=== PATIENT | female | born 1955 | race Hispanic/Latino ===

== ENCOUNTER 2018-02-19 18:17 | Inpatient (IN) | payer OTHER ==
[~2018-02-19] VITALS: Ht 160 cm; Wt 89.9 kg
[~2018-02-19 18:17] MED LIST: AMIODARONE HCL 50 MG/ML 3 ML VIAL IV ONE; ASPI81TA40 PO; ATOR10TA69 PO; CLOP75TA14 PO; EPINEPHRINE 0.1 MG/ML 10 ML SYG IVP ONE; FURO20TA6 PO; LIDOCAINE 2G/250ML 250 ML IV ONE; METO50TA18 PO; OLME20TA22 PO; TYL3 PO
[2018-02-19] MEDS ORDERED: IOPAMIDOL-370 100 ML VIAL IV ONE (18:42)
[2018-02-19 18:46] LABS: BASOPHILS % (AUTO) 0.6 % (0.0-5.0); EOSINOPHILS % (AUTO) 1.5 % (0.0-8.0); HEMATOCRIT 38.9 % (36-48); LYMPHOCYTES % (AUTO) 21.5 % (21.0-51.0); MEAN CORPUSCULAR HEMOGLOBIN 31.4 pg (27.0-33.0); MEAN CORPUSCULAR HGB CONC 33.9 g/dL (32.0-36.0); MEAN CORPUSCULAR VOLUME 92.8 fL (79-99); MONOCYTES % (AUTO) 5.5 % (3.0-13.0); NEUTROPHILS % (AUTO) 70.9 % (40.0-77.0); PLATELET COUNT (AUTO) 222 K/uL (130-400); RED BLOOD CELL COUNT(AUTO) 4.19 MIL/uL (4.00-5.50); RED CELL DISTRIBUTION WIDTH 13.3 % (11.0-15.5); WHITE BLOOD COUNT (AUTO) 11.7 K/uL (4.8-10.8)
[2018-02-19 18:58] LABS: INR 0.98 (0.85-1.15); PROTHROMBIN TIME 10.3 SEC (9.6-11.6)
[2018-02-19 19:00] LABS: CREATININE 1.2 mg/dL (0.5-1.5); POTASSIUM 3.2 mmol/L (3.5-5.1)
[2018-02-19 19:03] LABS: ALBUMIN 3.7 g/dL (3.5-5.0); BILIRUBIN,TOTAL 0.4 mg/dL (0.2-1.0); TOTAL PROTEIN, SERUM 6.9 g/dL (6.0-8.3)
[2018-02-19 20:41] LABS: APPEARANCE,URINE Clear (CLEAR); BILIRUBIN,URINE Negative (NEGATIVE); COLOR,URINE Yellow (YELLOW); GLUCOSE, URINE (UA) Negative (NEGATIVE); KETONES,URINE Negative (NEGATIVE); LEUKOCYTE ESTERASE ,URINE Trace (NEGATIVE); NITRATE,URINE Negative (NEGATIVE); OCCULT BLOOD,URINE Negative (NEGATIVE); PROTEIN,URINE Negative (NEGATIVE); UROBILINOGEN,URINE 0.2 mg/dL (0.2-1.0)
[2018-02-19] MEDS ORDERED: MORPHINE SULFATE 2 MG/ML 1ML SYG ONE (20:46)
[2018-02-19 21:19] LABS: BACTERIA,URINE Rare /HPF (None Seen); RBC,URINE 0-1 /HPF (0-1); SQUAMOUS EPITHELIAL CELL,UR Rare /HPF (0-2)
[2018-02-20] VITALS (24 sets, daily range): BP systolic 79–142; BP diastolic 33–120
[2018-02-20] MEDS ORDERED: POTASSIUM CHLORIDE 10% ELIXIR 20 MEQ/15 ML UDCUP PO PRN
[2018-02-20] MEDS ORDERED: GLUCAGON 1MG KIT 1 MG ML IM PRN
[2018-02-20] MEDS ORDERED: GUAIFENESIN-DM 200/20 MG 10 ML PO PRN
[2018-02-20] MEDS ORDERED: LIDOCAINE HCL-MPF 1% 2ML VIAL IVP PRN
[2018-02-20] MEDS ORDERED: ACETAMINOPHEN-CODEINE 300/30MG TAB PO PRN
[2018-02-20] MEDS ORDERED: LACTULOSE 20 GM/30 ML UDCUP PO PRN
[2018-02-20] MEDS ORDERED: MORPHINE SULFATE 2 MG/ML 1ML SYG IV PRN
[2018-02-20] MEDS ORDERED: DEXTROSE 50%-WATER 50 ML DISP.SYRIN IV PRN
[2018-02-20] MEDS ORDERED: NITROGLYCERIN 0.4 MG SL TAB SL PRN
[2018-02-20] MEDS ORDERED: HYDRALAZINE HCL 20 MG/ML VIAL IV PRN
[2018-02-20] MEDS ORDERED: ONDANSETRON HCL 4 MG/2 ML VIAL IV PRN
[2018-02-20] MEDS ORDERED: ACETAMINOPHEN 325 MG TAB PO PRN ×2
[2018-02-20] MEDS ORDERED: LEVOFLOXACIN 500 MG/D5W 100 ML 100 ML ONE (01:13)
[2018-02-20] MEDS ORDERED: METOPROLOL TARTRATE 25 MG TAB ONE (02:11)
[2018-02-20] MEDS ORDERED: MEPERIDINE-PF 25 MG/ML SYG ONE (04:22)
[2018-02-20 05:07] LABS: HEMATOCRIT 32.5 % (36-48); MEAN CORPUSCULAR HEMOGLOBIN 32.5 pg (27.0-33.0); MEAN CORPUSCULAR HGB CONC 35.2 g/dL (32.0-36.0); MEAN CORPUSCULAR VOLUME 92.2 fL (79-99); PLATELET COUNT (AUTO) 171 K/uL (130-400); RED BLOOD CELL COUNT(AUTO) 3.52 MIL/uL (4.00-5.50); RED CELL DISTRIBUTION WIDTH 14.2 % (11.0-15.5); WHITE BLOOD COUNT (AUTO) 8.9 K/uL (4.8-10.8)
[2018-02-20 05:22] LABS: HEMOGLOBIN A1C 5.8 % (4.0-6.0)
[2018-02-20 05:29] LABS: THYROID STIMULATING HORMONE 1.8 uIU/mL (0.36-3.74)
[2018-02-20] MEDS: INSULIN HUMULIN R 100 UNIT/ML 3ML SQ SCH ×4 (07:30→22:26)
[2018-02-20] MEDS: METOPROLOL TARTRATE 25 MG TAB PO SCH ×2 (09:00→21:00)
[2018-02-20] MEDS ORDERED: FAMOTIDINE 20MG TAB 20 MG TAB PO SCH (09:00)
[2018-02-20] MEDS ORDERED: METO100T14 PO (09:37)
[2018-02-20] MEDS ORDERED: FAMOTIDINE 20MG TAB 20 MG TAB ONE (10:19)
[2018-02-20] MEDS ORDERED: SUCCINYLCHOLINE CHLORIDE 20 MG/ML 10 ML VIAL IVP ONE (12:00)
[2018-02-20] MEDS ORDERED: ETOMIDATE 2 MG/ML 10 ML VIAL IVP ONE (12:00)
[2018-02-20] MEDS ORDERED: ROCURONIUM BROMIDE 10MG/1ML 5ML VL IV ONE (12:00)
[2018-02-20] MEDS ORDERED: AMIODARONE HCL 50 MG/ML 3 ML VIAL ONE (14:40)
[2018-02-20] MEDS ORDERED: NOREPINEPHRINE BITARTRATE 1 MG/1 ML ML IV ONE (14:48)
[2018-02-20 14:58] LABS: ABG BASE EXCESS -18.3 mmol/L (-2.0-3.0); ABG HCO3 10.2 mmol/L (21.0-28.0); ABG OXYGEN SATURATION 99.2 % (95.0-99.0); ABG PCO2 34 mmHg (32-45)
[2018-02-20 15:38] LABS: ABG HCO3 10.5 mmol/L (21.0-28.0); ABG OXYGEN SATURATION 98.4 % (95.0-99.0); ABG PCO2 23 mmHg (32-45)
[2018-02-20 15:40] LABS: BASOPHILS % (AUTO) 0.3 % (0.0-5.0); EOSINOPHILS % (AUTO) 0.4 % (0.0-8.0); HEMATOCRIT 35.7 % (36-48); LYMPHOCYTES % (AUTO) 45.1 % (21.0-51.0); MEAN CORPUSCULAR HGB CONC 34.6 g/dL (32.0-36.0); MEAN CORPUSCULAR VOLUME 95.2 fL (79-99); MONOCYTES % (AUTO) 8.4 % (3.0-13.0); NEUTROPHILS % (AUTO) 45.8 % (40.0-77.0); NUCLEATED RED BLOOD CELLS 0.3 % (0.0-0.19); PLATELET COUNT (AUTO) 170 K/uL (130-400); RED BLOOD CELL COUNT(AUTO) 3.75 MIL/uL (4.00-5.50); RED CELL DISTRIBUTION WIDTH 13.9 % (11.0-15.5); WHITE BLOOD COUNT (AUTO) 11.7 K/uL (4.8-10.8)
[2018-02-20 15:43] LABS: CREATININE 1.3 mg/dL (0.5-1.5)
[2018-02-20 15:47] LABS: POTASSIUM 2.9 mmol/L (3.5-5.1)
[2018-02-20] MEDS ORDERED: IOPAMIDOL-370 75 ML VIAL IV ONE (16:00)
[2018-02-20] MEDS ORDERED: POTASSIUM CHLORIDE 20MEQ/100ML 100 ML IV ONE (16:03)
[2018-02-20 17:34] LABS: ABG BASE EXCESS -9.9 mmol/L (-2.0-3.0); ABG HCO3 14.2 mmol/L (21.0-28.0); ABG OXYGEN SATURATION 99.2 % (95.0-99.0); ABG PCO2 27 mmHg (32-45)
[2018-02-20] MEDS ORDERED: SODIUM CHLORIDE 0.9% 1000ML 1,000 ML IV ONE (17:41)
[2018-02-20] MEDS ORDERED: SODIUM CHLORIDE 0.9% 500ML 500 ML IV SCH (17:45)
[2018-02-20] MEDS ORDERED: LORAZEPAM 2 MG/ML 1 ML VIAL ONE (17:58)
[2018-02-20] MEDS ORDERED: LORAZEPAM 2 MG/ML 1 ML VIAL IVP PRN (18:30)
[2018-02-20] MEDS ORDERED: PROPOFOL 1000 MG/100 ML 100 ML IV ONE (19:49)
[2018-02-20] MEDS: NOREPINEPHRINE 4MG/NS 250ML 250 ML IV SCH ×2 (20:11→23:44)
[2018-02-20] MEDS: POTASSIUM CHLORIDE 20MEQ/100ML 100 ML IV PRN (21:16)
[2018-02-20] MEDS: LEVETIRACETAM 1,000 MG in SODIUM CHLORIDE 0.9% 100 ML IV SCH (22:16)
[2018-02-20] MEDS: HEPARIN SODIUM 5000UNIT/ML 1ML VIAL SQ SCH (22:23)
[2018-02-20] MEDS: LEVOFLOXACIN 500 MG/D5W 100 ML 100 ML IV SCH ×2 (23:52)
[2018-02-21] VITALS (17 sets, daily range): BP systolic 92–150; BP diastolic 39–83
[2018-02-21 00:36] LABS: CREATINE KINASE MB 11.3 ng/mL (0.5-3.6); CREATININE 1.1 mg/dL (0.5-1.5); POTASSIUM 3.6 mmol/L (3.5-5.1)
[2018-02-21 00:43] LABS: TROPONIN I 4.28 ng/mL (0.00-0.06)
[2018-02-21] MEDS: NOREPINEPHRINE 4MG/NS 250ML 250 ML IV SCH ×2 (04:39→08:17)
[2018-02-21] MEDS: INSULIN HUMULIN R 100 UNIT/ML 3ML SQ SCH ×4 (05:35→21:00)
[2018-02-21 05:50] LABS: HEMATOCRIT 29.8 % (36-48); MEAN CORPUSCULAR HEMOGLOBIN 31.8 pg (27.0-33.0); MEAN CORPUSCULAR HGB CONC 33.5 g/dL (32.0-36.0); PLATELET COUNT (AUTO) 119 K/uL (130-400); RED BLOOD CELL COUNT(AUTO) 3.13 MIL/uL (4.00-5.50); RED CELL DISTRIBUTION WIDTH 13.8 % (11.0-15.5); WHITE BLOOD COUNT (AUTO) 15.4 K/uL (4.8-10.8)
[2018-02-21] MEDS: PROPOFOL 1000 MG/100 ML IV PRN ×3 (06:06→23:13)
[2018-02-21 06:15] LABS: CREATINE KINASE MB 19.3 ng/mL (0.5-3.6); CREATININE 0.9 mg/dL (0.5-1.5); POTASSIUM 3.8 mmol/L (3.5-5.1)
[2018-02-21 06:17] LABS: TROPONIN I 3.81 ng/mL (0.00-0.06)
[2018-02-21] MEDS ORDERED: SODIUM CHLORIDE 0.9% 1000ML 1,000 ML IV PRN (08:45)
[2018-02-21] MEDS: LEVETIRACETAM 1,000 MG in SODIUM CHLORIDE 0.9% 100 ML IV SCH (09:00)
[2018-02-21] MEDS: METOPROLOL TARTRATE 25 MG TAB PO SCH ×2 (09:00→21:00)
[2018-02-21] MEDS ORDERED: SODIUM CHLORIDE 0.9% 500ML 500 ML IV ONE (09:06)
[2018-02-21] MEDS: FAMOTIDINE/PF 20 MG/2 ML VIAL IV SCH (09:37)
[2018-02-21] MEDS ORDERED: PHARMACY COMMUNICATION MISC SCH ×2 (10:15→22:00)
[2018-02-21] MEDS: DEXTROSE 5 %-0.45 % NACL 1,000 ML IV SCH (10:27)
[2018-02-21] MEDS: SODIUM CHLORIDE 0.9% IV SCH ×2 (10:27→17:47)
[2018-02-21] MEDS: FOSPHENYTOIN SODIUM IV SCH ×2 (10:27→17:47)
[2018-02-21] MEDS: HEPARIN SODIUM 5000UNIT/ML 1ML VIAL SQ SCH ×2 (10:28→22:32)
[2018-02-21] MEDS: MAGNESIUM 2GM PREMIX 50ML 50 ML IV PRN (10:37)
[2018-02-21] MEDS ORDERED: COMPOUND IV MISC 1 EACH IVSOLN MISC PRN (12:15)
[2018-02-21] MEDS ORDERED: COMPOUND IV REFRIGERATED 1 EACH IVSOLN MISC PRN (12:15)
[2018-02-21] MEDS ORDERED: FENTANYL 2500MCG+NS 250ML 250 ML IV ONE (20:49)
[2018-02-21] MEDS ORDERED: FUROSEMIDE 10 MG/ML 2ML VIAL ONE (20:49)
[2018-02-21] MEDS ORDERED: FUROSEMIDE 10 MG/ML 2ML VIAL IV ONE (21:00)
[2018-02-21] MEDS ORDERED: FENTANYL 2500MCG+NS 250ML 250 ML IV PRN (21:00)
[2018-02-21] MEDS ORDERED: IOPAMIDOL-370 100 ML VIAL IV ONE (21:30)
[2018-02-21] MEDS: VALPROATE SOD 250 MG/5 ML (PO) PO SCH (22:28)
[2018-02-21] MEDS: LEVETIRACETAM 1,500 MG in SODIUM CHLORIDE 0.9% 100 ML IV SCH (22:29)
[2018-02-21] MEDS: LEVOFLOXACIN 500 MG/D5W 100 ML 100 ML IV SCH (23:13)
[2018-02-22] VITALS (24 sets, daily range): BP systolic 94–136; BP diastolic 39–93
[2018-02-22] MEDS: NOREPINEPHRINE 4MG/NS 250ML 250 ML IV SCH (02:16)
[2018-02-22] MEDS: FOSPHENYTOIN SODIUM IV SCH ×2 (02:30→09:28)
[2018-02-22] MEDS: SODIUM CHLORIDE 0.9% IV SCH ×2 (02:30→09:28)
[2018-02-22] MEDS: VALPROATE SOD 250 MG/5 ML (PO) PO SCH ×4 (04:41→21:30)
[2018-02-22 04:49] LABS: ABG BASE EXCESS -5.5 mmol/L (-2.0-3.0); ABG HCO3 16.7 mmol/L (21.0-28.0); ABG OXYGEN SATURATION 97.5 % (95.0-99.0); ABG PCO2 25 mmHg (32-45)
[2018-02-22] MEDS: INSULIN HUMULIN R 100 UNIT/ML 3ML SQ SCH ×4 (05:22→21:00)
[2018-02-22 05:32] LABS: HEMATOCRIT 28.6 % (36-48); MEAN CORPUSCULAR HEMOGLOBIN 33.2 pg (27.0-33.0); MEAN CORPUSCULAR HGB CONC 35.7 g/dL (32.0-36.0); MEAN CORPUSCULAR VOLUME 93.1 fL (79-99); PLATELET COUNT (AUTO) 126 K/uL (130-400); RED BLOOD CELL COUNT(AUTO) 3.07 MIL/uL (4.00-5.50); RED CELL DISTRIBUTION WIDTH 13.8 % (11.0-15.5)
[2018-02-22 05:44] LABS: CREATININE 0.9 mg/dL (0.5-1.5); MAGNESIUM 1.5 mg/dL (1.80-2.40); PHOSPHORUS 2.2 mg/dL (2.5-4.9); POTASSIUM 3.4 mmol/L (3.5-5.1)
[2018-02-22] MEDS: POTASSIUM CHLORIDE 20MEQ/100ML 100 ML IV PRN (05:58)
[2018-02-22] MEDS: MAGNESIUM 2GM PREMIX 50ML 50 ML IV PRN (05:59)
[2018-02-22] MEDS: DEXTROSE 5 %-0.45 % NACL 1,000 ML IV SCH (08:45)
[2018-02-22] MEDS: METOPROLOL TARTRATE 25 MG TAB PO SCH ×2 (09:00→21:30)
[2018-02-22] MEDS ORDERED: PHENYTOIN SODIUM 50 MG/ML 2ML VIAL IV SCH (09:00)
[2018-02-22] MEDS: ENOXAPARIN SODIUM 40 MG/0.4 ML SYRINGE SQ SCH (09:00)
[2018-02-22] MEDS ORDERED: PHENYTOIN SODIUM IV SCH (09:30)
[2018-02-22] MEDS ORDERED: SODIUM CHLORIDE 0.9% IV SCH (09:30)
[2018-02-22] MEDS: FAMOTIDINE/PF 20 MG/2 ML VIAL IV SCH (10:52)
[2018-02-22] MEDS: HEPARIN SODIUM 5000UNIT/ML 1ML VIAL SQ SCH ×2 (10:53→21:44)
[2018-02-22] MEDS: LEVETIRACETAM 1,500 MG in SODIUM CHLORIDE 0.9% 100 ML IV SCH ×2 (11:06→21:30)
[2018-02-22 12:34] LABS: ABG HCO3 17.6 mmol/L (21.0-28.0); ABG OXYGEN SATURATION 97.6 % (95.0-99.0); ABG PCO2 27 mmHg (32-45)
[2018-02-22] MEDS ORDERED: CEFTRIAXONE 1GM/D5W 50ML 50 ML IV SCH (13:15)
[2018-02-22] MEDS: CEFTRIAXONE SODIUM 1 GM IVP SCH (14:15)
[2018-02-22] MEDS: PHENYTOIN SODIUM 50MG/ML 2ML 200 MG in SODIUM CHLORIDE 0.9% 50 ML IV SCH (21:36)
[2018-02-22] MEDS: LEVOFLOXACIN 500 MG/D5W 100 ML 100 ML IV SCH (23:46)
[2018-02-23] VITALS (24 sets, daily range): BP systolic 90–118; BP diastolic 43–71
[2018-02-23] MEDS: VALPROATE SOD 250 MG/5 ML (PO) PO SCH ×4 (02:58→21:41)
[2018-02-23 04:42] LABS: BASOPHILS % (AUTO) 0.3 % (0.0-5.0); EOSINOPHILS % (AUTO) 0.2 % (0.0-8.0); HEMATOCRIT 28.2 % (36-48); LYMPHOCYTES % (AUTO) 11.4 % (21.0-51.0); MEAN CORPUSCULAR HGB CONC 34.1 g/dL (32.0-36.0); MONOCYTES % (AUTO) 4.6 % (3.0-13.0); NEUTROPHILS % (AUTO) 83.5 % (40.0-77.0); PLATELET COUNT (AUTO) 127 K/uL (130-400); RED CELL DISTRIBUTION WIDTH 14.5 % (11.0-15.5); WHITE BLOOD COUNT (AUTO) 8.8 K/uL (4.8-10.8)
[2018-02-23 04:44] LABS: CREATININE 0.9 mg/dL (0.5-1.5); MAGNESIUM 1.7 mg/dL (1.80-2.40); POTASSIUM 3.5 mmol/L (3.5-5.1)
[2018-02-23] MEDS: INSULIN HUMULIN R 100 UNIT/ML 3ML SQ SCH ×4 (05:56→21:00)
[2018-02-23] MEDS: MAGNESIUM 2GM PREMIX 50ML 50 ML IV PRN (05:57)
[2018-02-23] MEDS: POTASSIUM CHLORIDE 20 MEQ ERTAB PO PRN (05:58)
[2018-02-23] MEDS: METOPROLOL TARTRATE 25 MG TAB PO SCH ×2 (09:31→21:40)
[2018-02-23] MEDS: ASPIRIN 81 MG EC TAB PO SCH (09:31)
[2018-02-23] MEDS: CLOPIDOGREL BISULFATE 75 MG TAB PO SCH (09:31)
[2018-02-23] MEDS: FAMOTIDINE/PF 20 MG/2 ML VIAL IV SCH (09:33)
[2018-02-23] MEDS: LEVETIRACETAM 1,500 MG in SODIUM CHLORIDE 0.9% 100 ML IV SCH ×2 (09:33→21:28)
[2018-02-23] MEDS: PHENYTOIN SODIUM 50MG/ML 2ML 200 MG in SODIUM CHLORIDE 0.9% 50 ML IV SCH ×2 (09:33→21:24)
[2018-02-23] MEDS: ENOXAPARIN SODIUM 40 MG/0.4 ML SYRINGE SQ SCH (09:33)
[2018-02-23] MEDS: IPRATROPIUM 0.5 MG/2.5 ML INH IH SCH ×3 (11:13→23:24)
[2018-02-23] MEDS: CEFTRIAXONE SODIUM 1 GM IVP SCH (12:03)
[2018-02-23] MEDS: KETOROLAC TROMETHAMINE 30MG/ML IV SCH ×2 (15:47→21:00)
[2018-02-23] MEDS: CYCLOBENZAPRINE HCL 10 MG TABLET PO SCH (21:00)
[2018-02-23] MEDS: ATORVASTATIN CALCIUM 10 MG TABLET PO SCH (21:34)
[2018-02-23 22:45] LABS: POTASSIUM 3.5 mmol/L (3.5-5.1)
[2018-02-24] VITALS (20 sets, daily range): BP systolic 86–117; BP diastolic 43–75
[2018-02-24] MEDS: LEVOFLOXACIN 500 MG/D5W 100 ML 100 ML IV SCH (00:31)
[2018-02-24] MEDS: POTASSIUM CHLORIDE 20 MEQ ERTAB PO PRN ×3 (00:31→05:24)
[2018-02-24] MEDS: KETOROLAC TROMETHAMINE 30MG/ML IV SCH ×4 (03:00→20:58)
[2018-02-24] MEDS: VALPROATE SOD 250 MG/5 ML (PO) PO SCH ×4 (03:58→20:56)
[2018-02-24 04:06] LABS: BASOPHILS % (AUTO) 0.6 % (0.0-5.0); EOSINOPHILS % (AUTO) 2.3 % (0.0-8.0); HEMATOCRIT 24.2 % (36-48); LYMPHOCYTES % (AUTO) 27.2 % (21.0-51.0); MEAN CORPUSCULAR HGB CONC 34.2 g/dL (32.0-36.0); MEAN CORPUSCULAR VOLUME 93.7 fL (79-99); MONOCYTES % (AUTO) 8.7 % (3.0-13.0); NEUTROPHILS % (AUTO) 61.2 % (40.0-77.0); NUCLEATED RED BLOOD CELLS 0.1 % (0.0-0.19); PLATELET COUNT (AUTO) 123 K/uL (130-400); RED BLOOD CELL COUNT(AUTO) 2.59 MIL/uL (4.00-5.50); RED CELL DISTRIBUTION WIDTH 14.4 % (11.0-15.5); WHITE BLOOD COUNT (AUTO) 6.2 K/uL (4.8-10.8)
[2018-02-24 04:28] LABS: CREATININE 0.9 mg/dL (0.5-1.5); POTASSIUM 3.4 mmol/L (3.5-5.1)
[2018-02-24] MEDS: INSULIN HUMULIN R 100 UNIT/ML 3ML SQ SCH ×4 (05:37→21:00)
[2018-02-24] MEDS: IPRATROPIUM 0.5 MG/2.5 ML INH IH SCH ×4 (06:32→23:52)
[2018-02-24] MEDS: PHENYTOIN SODIUM 50MG/ML 2ML 200 MG in SODIUM CHLORIDE 0.9% 50 ML IV SCH (08:48)
[2018-02-24] MEDS: CYCLOBENZAPRINE HCL 10 MG TABLET PO SCH ×2 (09:00→20:57)
[2018-02-24] MEDS ORDERED: PHARMACY COMMUNICATION MISC SCH (09:30)
[2018-02-24] MEDS: METOPROLOL TARTRATE 25 MG TAB PO SCH ×2 (09:41→20:57)
[2018-02-24] MEDS: ASPIRIN 81 MG EC TAB PO SCH (09:41)
[2018-02-24] MEDS: CLOPIDOGREL BISULFATE 75 MG TAB PO SCH (09:41)
[2018-02-24] MEDS: ENOXAPARIN SODIUM 40 MG/0.4 ML SYRINGE SQ SCH (09:47)
[2018-02-24] MEDS: LEVETIRACETAM 1,500 MG in SODIUM CHLORIDE 0.9% 100 ML IV SCH ×2 (09:47→20:58)
[2018-02-24] MEDS: FAMOTIDINE/PF 20 MG/2 ML VIAL IV SCH (09:47)
[2018-02-24] MEDS: PHENYTOIN SODIUM IV SCH ×2 (10:43→22:25)
[2018-02-24] MEDS: SODIUM CHLORIDE 0.9% IV SCH ×2 (10:43→22:25)
[2018-02-24] MEDS: CEFTRIAXONE SODIUM 1 GM IVP SCH (13:34)
[2018-02-24] MEDS: ATORVASTATIN CALCIUM 10 MG TABLET PO SCH (20:56)
[2018-02-25] MEDS: KETOROLAC TROMETHAMINE 30MG/ML IV SCH (02:11)
[2018-02-25] MEDS: VALPROATE SOD 250 MG/5 ML (PO) PO SCH ×3 (03:30→20:15)
[2018-02-25 03:49] VITALS: BP 112/67
[2018-02-25 05:30] LABS: HEMATOCRIT 25.5 % (36-48); MEAN CORPUSCULAR HEMOGLOBIN 33.8 pg (27.0-33.0); MEAN CORPUSCULAR HGB CONC 35.7 g/dL (32.0-36.0); MEAN CORPUSCULAR VOLUME 94.6 fL (79-99); NUCLEATED RED BLOOD CELLS 0.3 % (0.0-0.19); PLATELET COUNT (AUTO) 125 K/uL (130-400); RED BLOOD CELL COUNT(AUTO) 2.69 MIL/uL (4.00-5.50); WHITE BLOOD COUNT (AUTO) 4.8 K/uL (4.8-10.8)
[2018-02-25] MEDS: INSULIN HUMULIN R 100 UNIT/ML 3ML SQ SCH ×4 (05:41→21:00)
[2018-02-25 05:45] LABS: CREATININE 0.8 mg/dL (0.5-1.5); POTASSIUM 3.4 mmol/L (3.5-5.1)
[2018-02-25] MEDS: IPRATROPIUM 0.5 MG/2.5 ML INH IH SCH ×3 (06:21→20:04)
[2018-02-25 07:00] VITALS: BP 122/71
[2018-02-25] MEDS: METOPROLOL TARTRATE 25 MG TAB PO SCH ×2 (08:39→21:18)
[2018-02-25] MEDS: CLOPIDOGREL BISULFATE 75 MG TAB PO SCH (08:39)
[2018-02-25] MEDS: ENOXAPARIN SODIUM 40 MG/0.4 ML SYRINGE SQ SCH (08:39)
[2018-02-25] MEDS: ASPIRIN 81 MG EC TAB PO SCH (08:39)
[2018-02-25] MEDS: CYCLOBENZAPRINE HCL 10 MG TABLET PO SCH ×3 (08:40→21:18)
[2018-02-25] MEDS: FAMOTIDINE/PF 20 MG/2 ML VIAL IV SCH (08:40)
[2018-02-25] MEDS: LEVETIRACETAM 1,500 MG in SODIUM CHLORIDE 0.9% 100 ML IV SCH (08:55)
[2018-02-25] MEDS: SODIUM CHLORIDE 0.9% IV SCH ×2 (08:56→22:30)
[2018-02-25] MEDS: PHENYTOIN SODIUM IV SCH ×2 (08:56→22:30)
[2018-02-25] MEDS ORDERED: CYCLOBENZAPRINE HCL 10 MG TABLET PO PRN (09:30)
[2018-02-25 11:00] VITALS: BP 122/52
[2018-02-25] MEDS ORDERED: TRAMADOL HCL 50 MG TABLET PO PRN (11:30)
[2018-02-25] MEDS ORDERED: ACETAMINOPHEN-CODEINE 300/30MG TAB PO PRN (11:30)
[2018-02-25] MEDS: IBUPROFEN 800 MG TAB PO SCH ×2 (11:31→20:15)
[2018-02-25 16:00] VITALS: BP 112/74
[2018-02-25 19:32] VITALS: BP 132/79
[2018-02-25] MEDS ORDERED: BISACODYL 10 MG SUPP.RECT RC PRN (20:00)
[2018-02-25] MEDS: ATORVASTATIN CALCIUM 10 MG TABLET PO SCH (21:18)
[2018-02-25] MEDS: LEVETIRACETAM 500 MG TABLET PO SCH (21:18)
[2018-02-25 23:26] VITALS: BP 135/77
[2018-02-26] MEDS: IPRATROPIUM 0.5 MG/2.5 ML INH IH SCH ×4 (00:47→19:12)
[2018-02-26] MEDS: VALPROATE SOD 250 MG/5 ML (PO) PO SCH ×3 (03:30→20:14)
[2018-02-26] MEDS: IBUPROFEN 800 MG TAB PO SCH ×3 (03:30→20:15)
[2018-02-26 03:44] VITALS: BP 130/75
[2018-02-26 05:17] LABS: HEMATOCRIT 29.1 % (36-48); MEAN CORPUSCULAR HEMOGLOBIN 32.6 pg (27.0-33.0); NUCLEATED RED BLOOD CELLS 0.3 % (0.0-0.19); PLATELET COUNT (AUTO) 142 K/uL (130-400); RED BLOOD CELL COUNT(AUTO) 3.04 MIL/uL (4.00-5.50); WHITE BLOOD COUNT (AUTO) 4.8 K/uL (4.8-10.8)
[2018-02-26 05:29] LABS: CREATININE 0.8 mg/dL (0.5-1.5); MAGNESIUM 1.7 mg/dL (1.80-2.40); PHOSPHORUS 2.7 mg/dL (2.5-4.9); POTASSIUM 3.1 mmol/L (3.5-5.1)
[2018-02-26] MEDS: INSULIN HUMULIN R 100 UNIT/ML 3ML SQ SCH ×4 (06:20→21:00)
[2018-02-26] MEDS: POTASSIUM CHLORIDE 20 MEQ ERTAB PO PRN (06:47)
[2018-02-26 07:00] VITALS: BP 132/82
[2018-02-26] MEDS: DOCUSATE SODIUM 100 MG CAP PO SCH ×2 (09:00→21:00)
[2018-02-26] MEDS: CYCLOBENZAPRINE HCL 10 MG TABLET PO SCH ×3 (09:00→21:13)
[2018-02-26] MEDS: PANTOPRAZOLE SODIUM 40 MG TABLET.DR PO SCH (09:25)
[2018-02-26] MEDS: METOPROLOL TARTRATE 50 MG TAB PO SCH ×2 (09:25→21:13)
[2018-02-26] MEDS: ASPIRIN 81 MG EC TAB PO SCH (09:25)
[2018-02-26] MEDS: ENOXAPARIN SODIUM 40 MG/0.4 ML SYRINGE SQ SCH (09:25)
[2018-02-26] MEDS: CLOPIDOGREL BISULFATE 75 MG TAB PO SCH (09:25)
[2018-02-26] MEDS: LEVETIRACETAM 500 MG TABLET PO SCH ×2 (09:26→21:13)
[2018-02-26] MEDS: PHENYTOIN SODIUM IV SCH (09:31)
[2018-02-26] MEDS: SODIUM CHLORIDE 0.9% IV SCH (09:31)
[2018-02-26 11:00] VITALS: BP 126/68
[2018-02-26] MEDS ORDERED: DOCU-275 PO (11:43)
[2018-02-26] MEDS ORDERED: Nitroglycerin 0.4MG Sl Tab SL (11:43)
[2018-02-26] MEDS ORDERED: CYCL10TA7 PO (11:43)
[2018-02-26] MEDS ORDERED: DIVA250T4 PO (11:43)
[2018-02-26] MEDS ORDERED: IBUP-2077 PO (11:43)
[2018-02-26] MEDS ORDERED: PANT40TA PO (11:43)
[2018-02-26] MEDS ORDERED: LEVE500T8 PO (11:43)
[2018-02-26] MEDS ORDERED: TYL3B PO (11:43)
[2018-02-26] MEDS ORDERED: TRAM50TA4 PO (11:43)
[2018-02-26] MEDS: MAGNESIUM OXIDE 400 MG TABLET PO SCH (13:06)
[2018-02-26 16:00] VITALS: BP_SYST 129; BP_DIAS 51; BP_DIAS 57
[2018-02-26 19:29] VITALS: BP 138/73
[2018-02-26] MEDS: ATORVASTATIN CALCIUM 10 MG TABLET PO SCH (21:13)
[2018-02-26 23:29] VITALS: BP 140/67
[2018-02-27] MEDS: IPRATROPIUM 0.5 MG/2.5 ML INH IH SCH ×4 (00:37→18:09)
[2018-02-27] MEDS: IBUPROFEN 800 MG TAB PO SCH ×2 (03:43→12:22)
[2018-02-27] MEDS: VALPROATE SOD 250 MG/5 ML (PO) PO SCH (03:44)
[2018-02-27 03:56] VITALS: BP 128/73
[2018-02-27 04:01] LABS: CREATININE 0.8 mg/dL (0.5-1.5); MAGNESIUM 1.7 mg/dL (1.80-2.40)
[2018-02-27 04:04] LABS: POTASSIUM 2.9 mmol/L (3.5-5.1)
[2018-02-27] MEDS: POTASSIUM CHLORIDE 20 MEQ ERTAB PO PRN ×5 (04:11→14:42)
[2018-02-27] MEDS: INSULIN HUMULIN R 100 UNIT/ML 3ML SQ SCH ×3 (05:36→16:30)
[2018-02-27] MEDS ORDERED: POTASSIUM CHLORIDE 20 MEQ/100 ML BAG IV SCH (06:45)
[2018-02-27] MEDS ORDERED: MAGNESIUM SULFATE 1 GM in SODIUM CHLORIDE 0.9% 50 ML IV SCH (06:45)
[2018-02-27] MEDS ORDERED: POTASSIUM CHLORIDE 20MEQ/100ML 100 ML IV SCH (07:00)
[2018-02-27 07:25] VITALS: BP 111/80
[2018-02-27] MEDS ORDERED: POTA-79 PO (09:42)
[2018-02-27] MEDS ORDERED: MAGN400T25 PO (09:42)
[2018-02-27] MEDS: DOCUSATE SODIUM 100 MG CAP PO SCH (10:01)
[2018-02-27] MEDS: LEVETIRACETAM 500 MG TABLET PO SCH (10:01)
[2018-02-27] MEDS: MAGNESIUM OXIDE 400 MG TABLET PO SCH (10:01)
[2018-02-27] MEDS: METOPROLOL TARTRATE 50 MG TAB PO SCH (10:01)
[2018-02-27] MEDS: CYCLOBENZAPRINE HCL 10 MG TABLET PO SCH ×2 (10:02→14:00)
[2018-02-27] MEDS: PANTOPRAZOLE SODIUM 40 MG TABLET.DR PO SCH (10:02)
[2018-02-27] MEDS: ASPIRIN 81 MG EC TAB PO SCH (10:02)
[2018-02-27] MEDS: CLOPIDOGREL BISULFATE 75 MG TAB PO SCH (10:02)
[2018-02-27] MEDS: MAGNESIUM 2GM PREMIX 50ML 50 ML IV PRN (10:04)
[2018-02-27] MEDS: ENOXAPARIN SODIUM 40 MG/0.4 ML SYRINGE SQ SCH (10:05)
[2018-02-27 11:18] VITALS: BP 120/71
[2018-02-27] MEDS: POTASSIUM CHLORIDE 20MEQ/100ML 100 ML IV PRN (12:33)
[2018-02-27] MEDS ORDERED: DIVALPROEX SODIUM 250 MG TABLET.DR PO SCH (16:00)
[2018-02-27 16:21] VITALS: BP 129/57
[2018-02-27 16:40] LABS: MAGNESIUM 2.2 mg/dL (1.80-2.40); POTASSIUM 3.8 mmol/L (3.5-5.1)
[2018-02-27 19:32] VITALS: BP 136/73
[2018-02-27] MEDS ORDERED: LEVETIRACETAM 500 MG TABLET PO SCH (21:00)
[2018-04-07] MEDS ORDERED: MAGN400T6 PO (16:23)
[2018-04-07] MEDS ORDERED: METO25TA6 PO (16:23)
[2018-04-07] MEDS ORDERED: CHOL100040 PO (16:23)
== END 2018-02-27 20:20 | DRG 208 ==
LOC: EDH 18:17 → OBSVTOIN 21:20 → EDHIP 21:20 → 2CH 02-20 16:56 → 2AH 02-24 14:38
PROVIDERS: ADMIT Surgery; ATTEND Surgery
PROC: 0BH17EZ Insertion of Endotracheal Airway into Trachea, Via Natural or Artificial Opening (ICD-10-PCS; principal; 2018-02-20)
PROC: 5A1945Z Respiratory Ventilation, 24-96 Consecutive Hours (ICD-10-PCS; 2018-02-20)
DX: S22.41XA Multiple fractures of ribs, right side, initial encounter for closed fracture (principal); J96.01 Acute respiratory failure with hypoxia; I49.01 Ventricular fibrillation; I50.43 Acute on chronic combined systolic (congestive) and diastolic (congestive) heart failure; J18.9 Pneumonia, unspecified organism; R56.9 Unspecified convulsions; I11.0 Hypertensive heart disease with heart failure; S27.321A Contusion of lung, unilateral, initial encounter; E11.65 Type 2 diabetes mellitus with hyperglycemia; I46.2 Cardiac arrest due to underlying cardiac condition; S27.0XXA Traumatic pneumothorax, initial encounter; N39.0 Urinary tract infection, site not specified; K56.0 Paralytic ileus; V89.2XXA Person injured in unspecified motor-vehicle accident, traffic, initial encounter; Y92.410 Unspecified street and highway as the place of occurrence of the external cause; I10 Essential (primary) hypertension; E78.5 Hyperlipidemia, unspecified; Z95.3 Presence of xenogenic heart valve; E87.6 Hypokalemia; D64.9 Anemia, unspecified; E66.01 Morbid (severe) obesity due to excess calories; E87.5 Hyperkalemia; G25.3 Myoclonus; I25.10 Atherosclerotic heart disease of native coronary artery without angina pectoris; I34.0 Nonrheumatic mitral (valve) insufficiency; I44.7 Left bundle-branch block, unspecified; I48.0 Paroxysmal atrial fibrillation; M47.9 Spondylosis, unspecified; R41.2 Retrograde amnesia; Z79.02 Long term (current) use of antithrombotics/antiplatelets; Z79.82 Long term (current) use of aspirin; Z95.5 Presence of coronary angioplasty implant and graft; Y93.89 Activity, other specified; Y92.89 Other specified places as the place of occurrence of the external cause; Y99.8 Other external cause status; Z88.0 Allergy status to penicillin
CPT/HCPCS: 31500; 36415; 36600; 70450; 70498; 70551; 71045; 71250; 71260; 71275; 72125; 72170; 73110; 73130; 74176; 74177; 80048; 80053; 80164; 80185; 81001; 82140; 82330; 82435; 82550; 82553; 82803; 82947; 82948; 83036; 83605; 83735; 83874; 84100; 84132; 84295; 84443; 84484; 85018; 85025; 85027; 85610; 85730; 86850; 86900; 86901; 86922; 87071; 87205; 92610; 92950; 93005; 93306; 93970; 94002; 94003; 94640; 94664; 94667; 94668; 97039; A4218; A4344; C1751; J0171; J0282; J0330; J0696; J1165; J1644; J1650; J1815; J1885; J1940; J1953; J1956; J2001; J2060; J2175; J2704; J3010; J3475; J3480; J3490; J7030; J7040; J7042; Q2009; Q9967

== ENCOUNTER 2018-04-10 09:53 | Observation (INO) | payer OTHER ==
[2018-04-07 15:20] VITALS: BP 115/66
[2018-04-07 15:38] LABS: BASOPHILS % (AUTO) 0.9 % (0.0-5.0); EOSINOPHILS % (AUTO) 5.5 % (0.0-8.0); HEMATOCRIT 39.2 % (36-48); LYMPHOCYTES % (AUTO) 32.7 % (21.0-51.0); MEAN CORPUSCULAR HEMOGLOBIN 32.4 pg (27.0-33.0); MEAN CORPUSCULAR HGB CONC 33.8 g/dL (32.0-36.0); MEAN CORPUSCULAR VOLUME 95.8 fL (79-99); MONOCYTES % (AUTO) 6.9 % (3.0-13.0); PLATELET COUNT (AUTO) 272 K/uL (130-400); RED BLOOD CELL COUNT(AUTO) 4.09 MIL/uL (4.00-5.50); RED CELL DISTRIBUTION WIDTH 15.1 % (11.0-15.5); WHITE BLOOD COUNT (AUTO) 5.9 K/uL (4.8-10.8)
[2018-04-07 15:55] LABS: INR 1.01 (0.85-1.15); PARTIAL THROMBOPLASTIN TIME 25.2 SEC (26.3-35.5); PROTHROMBIN TIME 10.6 SEC (9.6-11.6)
[~2018-04-10] VITALS: Ht 157.5 cm; Wt 73.9 kg
[~2018-04-10 09:53] MED LIST changes: -AMIODARONE HCL 50 MG/ML 3 ML VIAL IV ONE; +CHOL100040 PO; -EPINEPHRINE 0.1 MG/ML 10 ML SYG IVP ONE; -FURO20TA6 PO; -LIDOCAINE 2G/250ML 250 ML IV ONE; +MAGN400T6 PO; +METO25TA6 PO; -METO50TA18 PO; -OLME20TA22 PO; +SODIUM CHLORIDE 0.9% 1000ML 1,000 ML IV SCH; -TYL3 PO
[2018-04-10 10:05] VITALS: BP 118/74
[2018-04-10] MEDS ORDERED: LIDOCAINE HCL 1% 20 ML VIAL ONE (16:55)
[2018-04-10] MEDS ORDERED: CEFAZOLIN 1GM / D5W 50ML 0 ML ONE (16:55)
[2018-04-10] MEDS ORDERED: MEPERIDINE-PF 25 MG/ML SYG ONE (17:21)
[2018-04-10] MEDS ORDERED: MIDAZOLAM HCL 1 MG/ML 2ML VIAL ONE (17:21)
[2018-04-10] MEDS ORDERED: VANCOMYCIN 1GM+NS 250ML 500 ML IV ONE (17:21)
[2018-04-10] MEDS ORDERED: BUPIVACAINE/PF 0.25% 30ML VIAL IJ ONE (17:27)
[2018-04-10] MEDS ORDERED: OCTYL 2-CYANOACRYLATE 1 EACH TP ONE (18:19)
[2018-04-10] MEDS ORDERED: ACETAMINOPHEN 325 MG TAB PO PRN ×2 (18:30)
[2018-04-10] MEDS ORDERED: ACETAMINOPHEN-CODEINE 300/30MG TAB PO PRN ×2 (18:30)
[2018-04-10] MEDS ORDERED: TEMAZEPAM 30 MG CAP PO PRN (18:30)
[2018-04-10] MEDS ORDERED: ONDANSETRON HCL 4 MG/2 ML VIAL IV PRN (18:30)
[2018-04-10] MEDS ORDERED: DOXY100T2 PO (18:41)
[2018-04-10 19:00] VITALS: BP 118/80
[2018-04-10] MEDS: METOPROLOL TARTRATE 25 MG TAB PO SCH (20:21)
[2018-04-10] MEDS ORDERED: ATORVASTATIN CALCIUM 10 MG TABLET PO SCH (21:00)
[2018-04-10 23:23] VITALS: BP 132/80
[2018-04-11 03:15] VITALS: BP 127/71
[2018-04-11 07:15] VITALS: BP 105/66
[2018-04-11] MEDS: METOPROLOL TARTRATE 25 MG TAB PO SCH (08:44)
[2018-04-11] MEDS ORDERED: ASPIRIN 81 MG EC TAB PO SCH (09:00)
[2018-04-11] MEDS ORDERED: VANCOMYCIN 1GM+NS 250ML 250 ML IV SCH (09:00)
[2018-04-11] MEDS ORDERED: CLOPIDOGREL BISULFATE 75 MG TAB PO SCH (09:00)
[2018-04-11] MEDS ORDERED: **HM**Cholecalciferol (Vitamin D3) (Vitamin D3) 1,000 UNIT PO SCH (09:00)
[2018-04-11] MEDS ORDERED: MAGNESIUM OXIDE 400 MG TABLET PO SCH (09:00)
== END 2018-04-11 11:30 | disposition home or self-care (01) ==
LOC: DAH 09:53 → DAHIP 09:54 → 2CH 19:39
PROVIDERS: ADMIT Internal Medicine Cardiovascular Disease; ATTEND Internal Medicine Cardiovascular Disease
DX: I48.0 Paroxysmal atrial fibrillation (principal); Z79.899 Other long term (current) drug therapy; Z79.82 Long term (current) use of aspirin; I10 Essential (primary) hypertension; E78.5 Hyperlipidemia, unspecified; I34.0 Nonrheumatic mitral (valve) insufficiency; Z95.3 Presence of xenogenic heart valve; Z95.5 Presence of coronary angioplasty implant and graft; Z86.74 Personal history of sudden cardiac arrest
CPT/HCPCS: 33249; 36415; 71046; 80048; 85025; 85610; 85730; 93005; 96365; 96366; A4606; C1721; C1895 ×2; G0378 ×26; J2175; J2250; J3370 ×2; J3490; 99156; 99157; J0690

== ENCOUNTER → 2018-10-09 | Outpatient (CLI) | payer OTHER ==
[~2018-10-09] MED LIST changes: +DOXY100T2 PO; +REGADENOSON 0.4 MG/5 ML PF SYG IVP SCH; -SODIUM CHLORIDE 0.9% 1000ML 1,000 ML IV SCH
== END | disposition home or self-care (01) ==
LOC: SHCH 09:10
PROVIDERS: ATTEND Internal Medicine Cardiovascular Disease
DX: I25.10 Atherosclerotic heart disease of native coronary artery without angina pectoris (principal); R55 Syncope and collapse
CPT/HCPCS: 78452; 93017; 96374; A9500 ×2; J2785

== ENCOUNTER → 2020-04-09 | Outpatient (CLI) | payer OTHER ==
[~2020-04-09] MED LIST changes: -MAGN400T6 PO; +MAGN400T8 PO; -REGADENOSON 0.4 MG/5 ML PF SYG IVP SCH
== END | disposition home or self-care (01) ==
LOC: RAH 08:50
PROVIDERS: ATTEND Internal Medicine
DX: K80.20 Calculus of gallbladder without cholecystitis without obstruction (principal); K76.0 Fatty (change of) liver, not elsewhere classified; K76.89 Other specified diseases of liver; R16.0 Hepatomegaly, not elsewhere classified; R76.0 Raised antibody titer
CPT/HCPCS: 76705